=== PATIENT | female | born 1970 ===

== ENCOUNTER 2018-09-16 13:48 | Emergency (ER) | payer SELFPAY ==
[2018-09-16 13:57] VITALS: BMI 36.8
[2018-09-16 14:01] VITALS: TEMP 98
[2018-09-16] MEDS ORDERED: Sodium Chloride 0.9% 1,000 ML IV SCH (14:45)
[2018-09-16 14:48] LABS: BASO # 0.1 K/uL (0.0-0.2); BASO % 0.9 % (0.0-2.0); EOS # 0.3 K/uL (0.0-0.7); EOS % 3.5 % (0.0-4.0); HEMOGLOBIN 14.2 g/dL (11.0-16.0); LYMPH # 2.7 K/uL (1.0-4.3); LYMPH % 30.3 % (20.0-40.0); MEAN CORPUSCULAR HEMOGLOBIN 29.4 pg (27.0-31.0); MEAN CORPUSCULAR HGB CONC 34.8 g/dL (33.0-37.0); MEAN PLATELET VOLUME 9.2 fL (7.2-11.7); MONO # 0.4 K/uL (0.0-0.8); MONO % 4.6 % (0.0-10.0); NEUT # 5.5 K/uL (1.8-7.0); NEUT % 60.7 % (50.0-75.0); RBC 4.83 Mil/uL (3.80-5.20); RED CELL DISTRIBUTION WIDTH 13.6 % (11.5-14.5)
[2018-09-16 14:50] LABS: MEAN CELL VOLUME 84.5 fL (81.0-99.0)
[2018-09-16 14:52] LABS: SQUAMOUS EPITHIAL 2 /hpf (0-5); URINE BACTERIA RARE (<OCC); URINE BILIRUBIN NEGATIVE (NEGATIVE); URINE BLOOD NEGATIVE (NEGATIVE); URINE CLARITY Clear (Clear); URINE COLOR Yellow (YELLOW); URINE GLUCOSE (UA) NORMAL (Normal); URINE LEUKOCYTE ESTERASE TRACE Leu/uL (Negative); URINE PROTEIN NEGATIVE (NEGATIVE); URINE UROBILINOGEN NORMAL mg/dL (0.2-1.0)
[2018-09-16 14:53] LABS: HCG,QUALITATIVE URINE NEGATIVE (NEGATIVE)
[2018-09-16 15:04] LABS: INR 1.1; PROTHROMBIN TIME 11.5 SECONDS (9.7-12.2)
[2018-09-16 15:10] LABS: ALB/GLOB RATIO 1.6 (1.0-2.1); ALBUMIN 4.3 g/dL (3.5-5.0); ALT/SGPT 28 U/L (9-52); AST/SGOT 31 U/L (14-36); BLOOD UREA NITROGEN 12 mg/dL (7-17); CALCIUM 9.8 mg/dl (8.6-10.4); GFR NON-AFRICAN AMERICAN > 60; HDL CHOLESTEROL 46 mg/dL (30-70)
--- NOTE | 2018-09-16 15:13 | RAD ---
Date of service: 09/16/2018 HISTORY: adm COMPARISON: No prior. FINDINGS: LUNGS: The lungs are well inflated and clear. PLEURA: No pleural effusions or pneumothorax. CARDIOVASCULAR: The heart is normal in size. No aortic atherosclerotic calcifications present. OSSEOUS STRUCTURES: Within normal limits for the patient's age. VISUALIZED UPPER ABDOMEN: Normal. OTHER FINDINGS: None. IMPRESSION: No active pulmonary disease.
[2018-09-16 15:21] LABS: LDL CHOLESTEROL 124 mg/dL (0-129)
--- NOTE | 2018-09-16 15:36 | CT ---
Date of service: 09/16/2018 PROCEDURE: CT HEAD WITHOUT CONTRAST. HISTORY: Headache, h/o CVA w minor left facial droop, no new neuro COMPARISON: None available. TECHNIQUE: Axial computed tomography images were obtained through the head/brain without intravenous contrast. Radiation dose: Total exam DLP = 1015.66 mGy-cm. This CT exam was performed using one or more of the following dose reduction techniques: Automated exposure control, adjustment of the mA and/or kV according to patient size, and/or use of iterative reconstruction technique. FINDINGS: HEMORRHAGE: No intracranial hemorrhage. BRAIN: Voss-white matter differentiation is preserved. There is no mass, mass effect or abnormal extra-axial fluid collection. There is no territorial infarction. The midline sagittal structures are normal. VENTRICLES: The ventricles are normal in size, shape and configuration. CALVARIUM: There is no calvarial fracture or extracranial soft tissue swelling. PARANASAL SINUSES: Predominantly clear. MASTOID AIR CELLS: Predominantly clear. OTHER FINDINGS: None. IMPRESSION: No acute intracranial abnormality. If there is a persistent focal neurologic deficit and an ongoing clinical concern for acute infarction, an MRI of the brain without intravenous contrast would be a more sensitive modality for evaluation of hyperacute/acute ischemic infarction.
--- NOTE | 2018-09-16 16:06 | C.PDOC ---
History Of Present Illness Patient is a 48 year old female who presents to the ED c/o dull achy headache on the top of her head that has been present for the past 2 weeks. Patient also reports old mild facial droop on the left side of her face with no forehead involvement that was a result of a stroke in [place] 3 years ago. She states that she has occasionally taken Tylenol 100mg PO every 1 to 2 days for her headache. Patient also states that she has ran out of her glucose machine and finger stick and is asking for refills. She denies any CP, SOB, vision change, weakness, or numbness. Time Seen by Provider: 09/16/18 14:03 Chief Complaint (Nursing): Headache History Per: Patient History/Exam Limitations: no limitations Onset/Duration Of Symptoms: Other (2 weeks) Current Symptoms Are (Timing): Still Present Associated Symptoms: denies: Photophobia, Blurred Vision, Extremity Weakness Recent travel outside of the [place]: No Additional History Per: Patient Past Medical History Reviewed: Historical Data, Nursing Documentation, Vital Signs Vital Signs: Last Vital Signs Temp 98.0 F 09/16/18 13:57 Pulse 73 09/16/18 15:00 Resp 15 09/16/18 15:00 BP 144/83 09/16/18 15:00 Pulse Ox 99 09/16/18 15:00 - Medical History PMH: Back Problems, HTN Surgical History: No Surg Hx Family History: States: No Known Family Hx - Social History Hx Alcohol Use: No Hx Substance Use: No Review Of Systems Constitutional: Positive for: Other (left faical droop) Neurological: Positive for: Headache Physical Exam - Physical Exam Appears: Non-toxic, In Acute Distress (mild), Other (obese female) Skin: Warm, Dry Head: Normacephalic, Other (mild left facial droop ) Nose: Other (nasal passages mild moderate erythema) Oral Mucosa: Moist Neck: Normal ROM, Supple Chest: Symmetrical, No Deformity Cardiovascular: Rhythm Regular, No Murmur Respiratory: Normal Breath Sounds, No Rales, No Rhonchi, No Wheezing Gastrointestinal/Abdominal: Soft, No Tenderness Extremity: Normal ROM Neurological/Psych: Oriented x3, Normal Speech, Normal Cognition, Normal Motor, Normal Sensation ED Course And Treatment - Laboratory Results Result Diagrams: 09/16/18 14:42 09/16/18 14:42 Lab Results: PT 11.5 SECONDS (9.7-12.2) 09/16/18 14:42 INR 1.1 09/16/18 14:42 APTT 35 SECONDS (21-34) H 09/16/18 14:42 Troponin I < 0.0120 ng/mL (0.00-0.120) 09/16/18 14:42 Total Bilirubin 0.5 mg/dL (0.2-1.3) 09/16/18 14:42 AST 31 U/L (14-36) 09/16/18 14:42 ALT 28 U/L (9-52) 09/16/18 14:42 Alkaline Phosphatase 149 U/L (38-126) H 09/16/18 14:42 Total Protein 7.0 g/dL (6.3-8.3) 09/16/18 14:42 Albumin 4.3 g/dL (3.5-5.0) 09/16/18 14:42 Globulin 2.7 gm/dL (2.2-3.9) 09/16/18 14:42 Albumin/Globulin Ratio 1.6 (1.0-2.1) 09/16/18 14:42 Urine Color Yellow (YELLOW) 09/16/18 14:42 Urine Clarity Clear (Clear) 09/16/18 14:42 Urine pH 7.0 (5.0-8.0) 09/16/18 14:42 Ur Specific [place] 1.009 (1.003-1.030) 09/16/18 14:42 Urine Protein Negative mg/dL (NEGATIVE) 09/16/18 14:42 Urine Glucose (UA) Normal mg/dL (Normal) 09/16/18 14:42 Urine Ketones Negative mg/dL (NEGATIVE) 09/16/18 14:42 Urine Blood Negative (NEGATIVE) 09/16/18 14:42 Urine Nitrate Negative (NEGATIVE) 09/16/18 14:42 Urine Bilirubin Negative (NEGATIVE) 09/16/18 14:42 Urine Urobilinogen Normal mg/dL (0.2-1.0) 09/16/18 14:42 Ur Leukocyte Esterase Trace Milli/uL (Negative) 09/16/18 14:42 Urine WBC (Auto) < 1 /hpf (0-5) 09/16/18 14:42 Urine RBC (Auto) 1 /hpf (0-3) 09/16/18 14:42 Ur Squamous Epith Cells 2 /hpf (0-5) 09/16/18 14:42 Urine Bacteria Rare (<OCC) 09/16/18 14:42 Urine HCG, Qual Negative (NEGATIVE) 09/16/18 14:42 Urine HCG, Qual Negative (NEGATIVE) 09/16/18 14:42 Lab Interpretation: Normal Urine POC: Negative O2 Sat by Pulse Oximetry: 99 (on RA) Pulse Ox Interpretation: Normal - Radiology CXR: Interpreted by Ok CXR Interpretation: Yes: No Acute Disease - CT Scan/US head CT Other Rad Studies (CT/US): Read By Radiologist, Radiology Report Reviewed CT/US Interpretation: IMPRESSION: No acute intracranial abnormality. If there is a persistent focal neurologic deficit and an ongoing clinical concern for acute infarction, an MRI of the brain without intravenous contrast would be a more sensitive modality for evaluation of hyperacute/acute ischemic infarction. Reevaluation Time: 16:07 Reassessment Condition: Improved Medical Decision Making Medical Decision Making: Plan: EKG Labs CXR Toradol 30mg IVP Ultram 50mg PO IV Fluids CAT Head Urinalysis mild headaches, poor medication compliance (tylenol 1000 mg once every 2-3 days) normal labs/neuro/head CT LOW susp of recurrent CVA, IF ever had a CVA, vs L Bob's Palsy adequate Motrin/Tylenol doses reviewed Disposition Doctor Will See Patient In The: Office Counseled Patient/Family Regarding: Studies Performed, Diagnosis - Disposition Referrals: Pending Sale To [facility] [Outside] [facility] [Outside] [facility] [Outside] [facility] [Outside] Disposition: HOME/ ROUTINE Disposition Time: 16:08 Condition: GOOD Additional Instructions: ibuprofeno/Advil 400-600 mg cada 6 horas megan necessario Tylenol 1000 mg cada 6 horas megan necessario Flonase [place] 1 spray cada lado del nariz cada 12 horas Sigue con [facility] megan necessario Llama para hacer joao Instructions: Headache, Adult Forms: [facility] (Kazakh) Print Language: ALBANIAN - Clinical Impression Clinical Impression: Headache - Scribe Statement The provider has reviewed the documentation as recorded by the Scribe Lexus Chapman All medical record entries made by the Scribe were at my direction and personally dictated by me. I have reviewed the chart and agree that the record accurately reflects my personal performance of the history, physical exam, medical decision making, and the department course for this patient. I have also personally directed, reviewed, and agree with the discharge instructions and disposition.
[2018-09-16 16:17] VITALS: BP 165/75; PULSE 84; RESP 16
[2018-09-16 16:23] VITALS: O2SAT 99
== END 2018-09-16 16:27 | disposition home or self-care (01) ==
LOC: C.ER 13:48
DX: R51 Headache (principal)
CPT/HCPCS: 70450; 71045; 80053; 80061; 81001; 82948; 83036; 84484; 84703; 85025; 85610; 85730; 96361; 96374; 99285; J1885; J7030

== ENCOUNTER 2018-10-19 17:48 | Emergency (ER) | payer SELFPAY ==
[2018-10-19 17:48] VITALS: BMI 36.8
[2018-10-19 18:05] VITALS: RESP 18; TEMP 98.6; O2SAT 97
[2018-10-19] MEDS ORDERED: cefTRIAXone (Rocephin) 250 mg Inj IM STA (18:38)
--- NOTE | 2018-10-19 19:52 | C.PDOC ---
History Of Present Illness 48 y/o female with PMH DM comes in to ED complaining of vaginal itching and pain x1 week. Denies any discharge, urinary symptoms, or abdominal pain. Denies any history of sexually transmitted infections. No fever or chills. Time Seen by Provider: 10/19/18 18:16 Chief Complaint (Nursing): Female Genitourinary History Per: Patient History/Exam Limitations: no limitations Onset/Duration Of Symptoms: Days Current Symptoms Are (Timing): Still Present Past Medical History Reviewed: Historical Data, Nursing Documentation, Vital Signs Vital Signs: Last Vital Signs Temp 98.6 F 10/19/18 18:00 Pulse 78 10/19/18 18:00 Resp 18 10/19/18 18:00 BP 166/99 H 10/19/18 18:00 Pulse Ox 97 10/19/18 18:00 Primary Care Provider: FAMILY PROVIDER,NO - Medical History PMH: Back Problems, HTN Family History: States: No Known Family Hx - Social History Hx Alcohol Use: No Hx Substance Use: No Review Of Systems Except As Marked, All Systems Reviewed And Found Negative. Constitutional: Negative for: Fever, Chills Gastrointestinal: Negative for: Vomiting, Abdominal Pain Genitourinary: Positive for: Other (vaginal itching and pain). Negative for: Dysuria, Hematuria, Vaginal Discharge Musculoskeletal: Negative for: Back Pain Physical Exam - Physical Exam Appears: Non-toxic, No Acute Distress Skin: Warm, Dry Head: Normacephalic Eye(s): bilateral: Normal Inspection Oral Mucosa: Moist Neck: Supple Gastrointestinal/Abdominal: Soft, No Tenderness, No Guarding, No Rebound Pelvic: Other (Vaginal canal nonerythematous. Cervix erythematous with thin, malodorous cream colored discharge) Extremity: Bilateral: Atraumatic, Normal ROM Neurological/Psych: Oriented x3, Normal Speech ED Course And Treatment O2 Sat by Pulse Oximetry: 97 (RA) Pulse Ox Interpretation: Normal Progress Note: GC/CHLAM swab sent to lab. Patient empirically treated with antibiotics in ED and discharged with prescription for presumptive bacterial vaginosis. Disposition Counseled Patient/Family Regarding: Studies Performed, Diagnosis, Rx Given - Disposition Disposition: HOME/ ROUTINE Disposition Time: 19:48 Condition: STABLE Additional Instructions: You were seen in the ED for vaginitis and were given antibiotics in the ED as well as a prescription to take at home. Do not drink alcohol while you are taking the Flagyl(Metronidazole) as it will make you sick. Follow up with your PMD in 2-3 days. Return to the ED for worsening symptoms. Prescriptions: Metronidazole [Flagyl] 500 mg PO BID #14 tablet Instructions: Vaginitis Forms: [employer] (Jordanian) Print Language: CITIZEN OF [place] - POA Present On Arrival: None - Clinical Impression Clinical Impression: Vaginitis - PA / PSYCHOLOGIST / Resident Statement MD/DO has reviewed & agrees with the documentation as recorded. - Scribe Statement The provider has reviewed the documentation as recorded by the Scribe Camille Iqbal All medical record entries made by the Keshavibjulia were at my direction and personally dictated by me. I have reviewed the chart and agree that the record accurately reflects my personal performance of the history, physical exam, medical decision making, and the department course for this patient. I have also personally directed, reviewed, and agree with the discharge instructions and disposition.
[2018-10-19 19:55] VITALS: BP 142/87; PULSE 70
== END 2018-10-19 20:04 | disposition home or self-care (01) ==
LOC: C.ER 17:48
DX: N76.0 Acute vaginitis (principal); I10 Essential (primary) hypertension; E11.9 Type 2 diabetes mellitus without complications
CPT/HCPCS: 87491; 87591; 96372; 99284; J0696